=== PATIENT | female | born 1990 | race Caucasian/White ===

== ENCOUNTER 2016-08-11 18:45 | Emergency (ER) | payer BC ==
[~2016-08-11] VITALS: Ht 160 cm; Wt 49.0 kg
[~2016-08-11 18:45] MED LIST: ANAPROX DS550 M1 PO; BENTYL10 MG PO; CIPRO500 MG PO; CYCLOBENZAPRINE10 MG PO; DILAUDID2 MG PO; FLAGYL500 MG PO; FLEXERIL10 MG PO; HYDROCODON-ACE1 EAC7 PO; IMITREX6 MG/0.52 SC; LORTAB 5-500 T1 EACH PO; MOTRIN400 MG PO; NORCO 5/3251 TABLET PO; NUCYNTA ER100 MG PO; NUCYNTA50 MG PO; PREDNISONE20 MG PO; PREVACID30 MG PO; PROTONIX; PROTONIX40 MG PO; REGLAN10 MG PO; STOOL STUDIES; ZOFRAN ODT4 MG PO; ZOFRAN4 MG PO
[2016-08-11 19:41] LABS: HEMATOCRIT 40.1 % (36.0-46.0); MCH 26.1 PG (29.0-34.0); MCHC 31.2 G/DL (30.0-36.0); MCV 83.7 FL (83-99); MEAN PLAT.VOLUME 9.6 uM^3 (9.5-12.4); PLATELET COUNT 344 K/uL (156-360); RBC DIS.WIDTH-CV 13.2 % (11.8-14.6); RBC DIS.WIDTH-SD 39.1 % (39-53); RED BLOOD COUNT 4.79 M/uL (3.80-5.20); WHITE BLOOD COUNT 10.2 K/uL (4.1-10.2)
[2016-08-11 20:01] LABS: CHLORIDE 104 mEq/L (99-109); POTASSIUM 3.9 mEq/L (3.7-5.4); SODIUM 138 mEq/L (136-147)
[2016-08-11 20:03] LABS: GLUCOSE 98 mg/dL (70-99)
[2016-08-11 20:05] LABS: ANION GAP 8 MEQ/L (2-14); TOTAL BILIRUBIN 0.3 mg/dL (0.0-1.0)
[2016-08-11 20:07] LABS: ALKALINE PHOSPHATASE 60 IU/L (3-129); GFR ESTIMATE (CALCULATED) > 59 mL/min/
[2016-08-11 20:08] LABS: UREA NITROGEN (BUN) 11 mg/dL (9-23)
[2016-08-11 20:16] LABS: QUANTITATIVE HCG < 4.0 MIU/ML
[2016-08-11] MEDS ORDERED: PEPCID20 MG PO (22:02)
[2016-08-11] MEDS ORDERED: CARAFATE1 GM PO (22:02)
[2016-08-11] MEDS ORDERED: BENTYL10 MG PO (22:04)
[2016-08-11 22:45] LABS: ADD MIUA? NO; BILIRUBIN NEGATIVE; BLOOD NEGATIVE; COLOR YELLOW ((YELLOW)); GLUCOSE (STRIP) NEGATIVE; KETONES NEGATIVE; LEUKOCYTES NEGATIVE; NITRITE NEGATIVE; PROTEIN (STRIP) NEGATIVE; UCUL ADDED? NO; UROBILINOGEN 0.2 MG/DL (0.2-1.0)
[2016-08-11 22:58] LABS: SPECIFIC GRAVITY 1.056 (1.000-1.030)
[2016-08-11 23:06] VITALS: BP 121/89
== END 2016-08-11 23:08 | disposition home or self-care (01) ==
LOC: EME 18:45
DX: K29.70 Gastritis, unspecified, without bleeding (principal); K21.9 Gastro-esophageal reflux disease without esophagitis; K50.90 Crohn's disease, unspecified, without complications; Z90.49 Acquired absence of other specified parts of digestive tract
CPT/HCPCS: 74177; 80053; 81003; 84702; 85027; 99281; 99284; J2270; J2405; J7030; S0028

== ENCOUNTER 2016-09-09 13:23 | Emergency (ER) | payer OTHER ==
[~2016-09-09] VITALS: Ht 157.5 cm; Wt 48.9 kg
[~2016-09-09 13:23] MED LIST changes: +CARAFATE1 GM PO; +PEPCID20 MG PO
[2016-09-09 14:17] LABS: HEMATOCRIT 36.6 % (36.0-46.0); MCH 26.1 PG (29.0-34.0); MCHC 31.4 G/DL (30.0-36.0); MCV 83.2 FL (83-99); MEAN PLAT.VOLUME 9.6 uM^3 (9.5-12.4); PLATELET COUNT 303 K/uL (156-360); RBC DIS.WIDTH-CV 13.6 % (11.8-14.6); RBC DIS.WIDTH-SD 41.6 % (39-53); WHITE BLOOD COUNT 8.7 K/uL (4.1-10.2)
[2016-09-09 14:27] LABS: CHLORIDE 105 mEq/L (99-109); POTASSIUM 3.7 mEq/L (3.7-5.4); SODIUM 139 mEq/L (136-147)
[2016-09-09 14:28] LABS: GLUCOSE 95 mg/dL (70-99)
[2016-09-09 14:30] LABS: ANION GAP 7 MEQ/L (2-14)
[2016-09-09 14:32] LABS: GFR ESTIMATE (CALCULATED) > 59 mL/min/
[2016-09-09 14:33] LABS: UREA NITROGEN (BUN) 13 mg/dL (9-23)
[2016-09-09 14:40] LABS: TROP-I INTERPRETATION NEGATIVE; TROPONIN-I < 0.01 ng/mL (0.0-0.30)
[2016-09-09 16:06] LABS: D-DIMER ELISA < 0.15 mg/L FEU (< 0.57)
[2016-09-09 17:32] VITALS: BP 114/89
== END 2016-09-09 17:33 | disposition home or self-care (01) ==
LOC: EME 13:23
DX: R07.9 Chest pain, unspecified (principal); K21.9 Gastro-esophageal reflux disease without esophagitis; G89.29 Other chronic pain
CPT/HCPCS: 71020; 80048; 84443; 84484; 85027; 85379; 93005; 99281; 99284; J3010; Q0177

== ENCOUNTER 2017-02-08 20:09 | Emergency (ER) | payer SELFPAY ==
[~2017-02-08] VITALS: Ht 157.5 cm; Wt 46.9 kg
[2017-02-08 20:32] LABS: ADD MIUA? YES; BILIRUBIN NEGATIVE; BLOOD NEGATIVE; COLOR YELLOW ((YELLOW)); GLUCOSE (STRIP) NEGATIVE; KETONES NEGATIVE; LEUKOCYTES SMALL; NITRITE NEGATIVE; PROTEIN (STRIP) NEGATIVE; SPECIFIC GRAVITY 1.019 (1.000-1.030); UROBILINOGEN 0.2 MG/DL (0.2-1.0)
[2017-02-08 20:49] LABS: HEMATOCRIT 38.8 % (36.0-46.0); MCH 25.3 PG (29.0-34.0); MCHC 31.2 G/DL (30.0-36.0); MEAN PLAT.VOLUME 9.6 uM^3 (9.5-12.4); PLATELET COUNT 330 K/uL (156-360); RBC DIS.WIDTH-CV 14.8 % (11.8-14.6); RBC DIS.WIDTH-SD 43.4 % (39-53); RED BLOOD COUNT 4.79 M/uL (3.80-5.20)
[2017-02-08 21:00] LABS: CHLORIDE 105 mEq/L (99-109); POTASSIUM 3.7 mEq/L (3.7-5.4); SODIUM 140 mEq/L (136-147)
[2017-02-08 21:02] LABS: GLUCOSE 99 mg/dL (70-99)
[2017-02-08 21:03] LABS: ANION GAP 10 MEQ/L (2-14)
[2017-02-08 21:04] LABS: TOTAL BILIRUBIN 0.2 mg/dL (0.0-1.0)
[2017-02-08 21:05] LABS: ALKALINE PHOSPHATASE 62 IU/L (3-129)
[2017-02-08 21:06] LABS: GFR ESTIMATE (CALCULATED) > 59 mL/min/
[2017-02-08 21:07] LABS: UREA NITROGEN (BUN) 14 mg/dL (9-23)
[2017-02-08 21:11] LABS: BACTERIA 1+ /HPF; CASTS NONE SEEN /LPF; CRYSTALS NONE SEEN; EPITHELIAL CELLS 2+ /HPF; MUCUS 1+ /LPF; RED BLOOD CELLS 0-5 /HPF (0-5); UCUL ADDED? YES
[2017-02-08 21:16] LABS: QUANTITATIVE HCG < 4.0 MIU/ML
[2017-02-08 22:58] LABS: LIPASE 46 U/L (1.0-51.0)
[2017-02-09] MEDS ORDERED: CITRATE OF MAG296 ML PO (01:42)
[2017-02-09] MEDS ORDERED: PEPCID20 MG PO (01:43)
[2017-02-09] MEDS ORDERED: KEFLEX500 MG PO (01:45)
[2017-02-09 02:32] VITALS: BP 116/68
== END 2017-02-09 02:38 | disposition home or self-care (01) ==
LOC: EME 20:09
DX: K59.00 Constipation, unspecified (principal); K29.70 Gastritis, unspecified, without bleeding; N39.0 Urinary tract infection, site not specified; K50.90 Crohn's disease, unspecified, without complications; K21.9 Gastro-esophageal reflux disease without esophagitis
CPT/HCPCS: 74177; 80053; 81003; 83690; 84702; 85027; 87086; 99281; 99285; J1885; J2270; J2405; J7030